=== PATIENT | male | born 1925 | race Caucasian/White ===

== ENCOUNTER → 2016-07-22 | Outpatient (REF) | payer MEDICARE, OTHER ==
[2016-07-22 13:31] LABS: CREATININE FOR GFR 1.62 MG/DL (0.70-1.30); GLOMERULAR FILTRATION RATE 42.9 (>35)
== END ==
LOC: M LABDRAWP 12:44
PROVIDERS: ATTEND Radiology Vascular & Interventional Radiology
DX: I71.4 Abdominal aortic aneurysm, without rupture (principal); I38 Endocarditis, valve unspecified
CPT/HCPCS: 36415; 82565; 84520; G0463

== ENCOUNTER → 2016-07-23 | Outpatient (CLI) | payer MEDICARE, OTHER ==
[~2016-07-23] MED LIST: ISOVUE-370 76% 100ML VIAL (Q9967) As Ordered ONE
--- NOTE | 2016-07-23 14:04 | REP ---
CT ANGIOGRAM OF THE ABDOMEN AND PELVIS WITH IV CONTRAST: HISTORY: Abdominal aortic aneurysm status post repair. Endograft leak. CT contrast dose: 50 mL of intravenous Isovue 370 was administered and deference to this patient's somewhat elevated creatinine. TECHNIQUE: Helical scanning is acquired. 3 mm axial images are reformatted. Coronal and sagittal multiplanar re-formation images are generated and reviewed. Delayed acquisition is acquired as requested. 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 There are multiple renal cysts bilaterally. There is an angiomyolipoma projecting posterolaterally from the left mid kidney again noted unchanged in size. This is 5 cm in greatest diameter. There is moderate enlargement of the prostate gland. There is a pin in the right hip. VASCULAR FINDINGS: The patient is status post aortobi-iliac stent graft treatment for abdominal aortic aneurysm. The previous study showed a small endoleak to the left of midline in the adjacent to the proximal segment of the left iliac limb of the stent graft. This measures 0.6 cm x 1.9 cm x 0.7 cm in dimension. It appears somewhat smaller particularly in the anteroposterior dimension than it did on the prior study. No new endoleak is seen. Vascular calcification is seen in the aneurysm and elsewhere. 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 This is essentially unchanged. Renal arteries remain patent as does the superior mesenteric. IMPRESSION: Small endoleak persists adjacent to the anterior, left iliac limb of the aortobi-iliac stent graft at the level of the abdominal aneurysm. The aneurysm is unchanged in size. The endoleak appears a little smaller than on the prior study. Stable 5 cm left renal angiomyolipoma. Signed by Reese Rivera MD 07/23/2016 02:05 P
== END ==
LOC: M RAD 10:35
PROVIDERS: ATTEND Radiology Vascular & Interventional Radiology
DX: I71.4 Abdominal aortic aneurysm, without rupture (principal); T82.310A Breakdown (mechanical) of aortic (bifurcation) graft (replacement), initial encounter; Y83.1 Surgical operation with implant of artificial internal device as the cause of abnormal reaction of the patient, or of later complication, without mention of misadventure at the time of the procedure
CPT/HCPCS: 74174; Q9967

== ENCOUNTER → 2016-08-16 | Outpatient (REF) | payer MEDICARE, OTHER | LOC: M LABDRAWP 15:46 | PROVIDERS: ATTEND Urology | DX: C64.2 Malignant neoplasm of left kidney, except renal pelvis (principal); Z12.5 Encounter for screening for malignant neoplasm of prostate ==

== ENCOUNTER → 2016-09-07 | Outpatient (REF) | payer MEDICARE, OTHER ==
[2016-09-07 14:38] LABS: ALBUMIN 3.4 GM/DL (3.2-5.2); ALBUMIN/GLOBULIN RATIO 1.21 (1.00-1.93); BILIRUBIN,TOTAL 1.2 MG/DL (0.2-1.0); CALCIUM LEVEL 10.1 MG/DL (8.8-10.2); CREATININE FOR GFR 1.43 MG/DL (0.70-1.30); GLOMERULAR FILTRATION RATE 49.6 (>35); POTASSIUM SERUM 4.5 MEQ/L (3.5-5.1); TOTAL PROTEIN 6.2 GM/DL (6.4-8.2)
== END ==
LOC: M SFHCPLAZ 10:04
PROVIDERS: ATTEND Internal Medicine
DX: I10 Essential (primary) hypertension (principal)